=== PATIENT | female | born 1995 | race Two or more races ===

== ENCOUNTER 2022-10-31 20:14 | Emergency (ER) | payer OTHER ==
[~2022-10-31] VITALS: Ht 162.6 cm; Wt 54.0 kg
[2022-11-01] MEDS ORDERED: INTESTINEX680 M1 PO (12:24)
[2022-11-01] MEDS ORDERED: PEPCID AC20 MG PO (12:24)
[2022-11-01] MEDS ORDERED: IBU600 MG PO (12:24)
== END 2022-11-01 12:48 ==
LOC: ER 20:14
DX: R10.30 Lower abdominal pain, unspecified (principal); I88.0 Nonspecific mesenteric lymphadenitis